=== PATIENT | male | born 1995 ===

== ENCOUNTER 2022-08-09 12:22 | Emergency (ER) | payer OTHER ==
[~2022-08-09] VITALS: Ht 167.6 cm; Wt 77.1 kg
== END 2022-08-09 14:41 | disposition home or self-care (01) ==
LOC: ER 12:22
DX: R07.81 Pleurodynia (principal); M25.562 Pain in left knee; V89.2XXA Person injured in unspecified motor-vehicle accident, traffic, initial encounter
CPT/HCPCS: 71045; 73562-LT; 99284-25